=== PATIENT | female | born 1955 ===

== ENCOUNTER 2025-06-01 17:12 | Emergency (ER) | payer OTHER ==
[~2025-06-01] VITALS: Ht 162.6 cm; Wt 68.0 kg
[2025-06-01 17:18] VITALS: BP 204/116
[2025-06-01] MEDS ORDERED: BACITRACIN ZINC OINT 15 GM TUBE ONE (18:09)
[2025-06-01] MEDS ORDERED: OXYC-128 PO (18:12)
[2025-06-01] MEDS: BACITRACIN ZINC OINT 15 GM TUBE TOP ONE (18:12)
[2025-06-01 18:21] VITALS: BP 204/116; TEMP 97.8; O2SAT 93
== END 2025-06-01 18:25 | disposition home or self-care (01) ==
LOC: ER 17:30
DX: S00.83XA Contusion of other part of head, initial encounter (principal); S00.81XA Abrasion of other part of head, initial encounter; F17.200 Nicotine dependence, unspecified, uncomplicated; G89.29 Other chronic pain; M26.629 Arthralgia of temporomandibular joint, unspecified side; S80.01XA Contusion of right knee, initial encounter; Z88.0 Allergy status to penicillin; Z88.1 Allergy status to other antibiotic agents; W01.198A Fall on same level from slipping, tripping and stumbling with subsequent striking against other object, initial encounter; Y93.89 Activity, other specified; Y92.89 Other specified places as the place of occurrence of the external cause; Y99.8 Other external cause status
CPT/HCPCS: A4606; A4663